=== PATIENT | female | born 1960 | race Caucasian/White ===

== ENCOUNTER 2022-04-01 09:03 | Outpatient (CLI) | payer BC, SELFPAY | END 2022-04-01 09:04 | disposition home or self-care (01) | PROVIDERS: Visit Provider Family Medicine | DX: M54.16 Radiculopathy, lumbar region (principal); M51.36 Other intervertebral disc degeneration, lumbar region | CPT/HCPCS: 62323; J0702; Q9966 ==

== ENCOUNTER 2022-06-10 10:52 | Outpatient (CLI) | payer BC, SELFPAY | END 2022-06-10 10:53 | disposition home or self-care (01) | PROVIDERS: Visit Provider Family Medicine | DX: M54.16 Radiculopathy, lumbar region (principal); M48.062 Spinal stenosis, lumbar region with neurogenic claudication | CPT/HCPCS: 62323; J0702; Q9966 ==

== ENCOUNTER 2024-02-01 11:31 | Outpatient (RCR) | payer BC, SELFPAY ==
--- NOTE | 2024-02-01 15:45 | PT.OPEX ---
PT [place] Outpatient Eval PT [facility] Outpatient Eval Start: 02/01/24 14:27 Freq: Status: Active Protocol: Document 02/01/24 15:30 MARIA DEL CARMEN (Rec: 02/01/24 15:43 [email or web address] [id number]) E-signed By Stella Broderick DPT Physical Therapy Outpatient Evaluation Insurance Information Recert Due Date 05/01/24 Insurance Name Medicare B,Blue Cross/Blue Shield Medical Diagnosis R knee OA, R knee pain R TKA 02/16/24 Treating Diagnosis R knee pain, R knee stiffness, R knee/LE weakness, limping/ antalgic gait Subjective Subjective Patient reports chronic R knee pain leading up to R TKA scheduled for 02/16/24. She reports having L TKA in 2019. Patient has equipment from prior TKA to use again after this surgery. She lives with spouse, he is able to assist as needed at home. 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 R knee pain rated 5-6/10 with activity. Patient is scheduled for OP PT in [place] post op. Date of Surgery (If applicable) 02/16/24 Current Work Status Retired Precautions Treatment Precautions/Contraindications Pacemaker, cancer, fibro, OA, long haul covid, L TKA 2018 Assessment Assessment/Impression Patient is a 63 year old female with R knee pain, R knee stiffness, R knee/LE weakness, limping/antalgic gait. She is using [facility] for amb secondary to R knee pain and balance/vestibular issues related to her long haul covid . Patient seen in PT today for pre-op session to provide education/information on upcoming TKA surgery, safety information/HO, equipment instruction including use of FWW, and instruction in TKA exercises. Handouts issued for exercises, patient to perform them leading up to surgery. Reviewed PT/OT plan during hospital stay and patient is scheduled for OP PT in [place] post op. Patient lives with her , he is able to assist as needed after surgery. Patient reports 2 stairs with grab bars to enter the home from the garage. Once inside, patient can stay on the main level. 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 Bathroom has a raised/high toilet seat. Patient reports having L TKA in 2019. Patient seen today for pre-op session only. She will be going to OP PT in [place] post op. No further PT scheduled at this clinic. Plan of Care Rehabilitation Potential Good Physical Therapy Goals 1. Patient will be educated in TKA pre/post-op safety, mobility, and exercises with HOs provided within one visit with patient scheduled for OP PT post op rehab in [place] after L TKA surgery on 02/16/24. Coordination/Communication With Referral Source Frequency/Duration 1 pre-op session Patient Will Be Discharged From Therapy Completion of LTG(s),Skills Plateau,Independent w/HEP, Independently Progressing Evaluation Billing Untimed Code Treatment Minutes 35 Complexity Low Certification Information Initial Certification Date 02/01/24 Ending Certification Date 05/01/24 Provider Signature Required Yes Provider Signature Shows Agreement With POC & Medical Necessity Physician NPI Number Write NPI# Here Physician Comment/Change : Physician Signature & Date Requested Please Sign/Date Here
== END 2024-05-31 10:51 | disposition home or self-care (01) ==
PROVIDERS: PCP Orthopaedic Surgery; Visit Provider Orthopaedic Surgery
DX: M17.11 Unilateral primary osteoarthritis, right knee (principal); Z96.651 Presence of right artificial knee joint; Z51.89 Encounter for other specified aftercare
CPT/HCPCS: 97161

== ENCOUNTER 2024-02-16 09:00 | Day surgery (SDC) | payer BC, SELFPAY ==
[2024-02-16] VITALS (21 sets, daily range): BP systolic 115–154; BP diastolic 65–96; PULSE 62–81; RESP 9–19; TEMP 35.7–36.5; O2SAT 92–100; BMI 48.9
[2024-02-16] MEDS: CELECOXIB 200 MG CAPSULE PO (09:40)
[2024-02-16] MEDS: ACETAMINOPHEN 500 MG TABLET 1000 MG PO ×3 (09:40→21:59)
[2024-02-16] MEDS: OXYCODONE (CR) 10 MG TAB.ER.12H PO (09:40)
[2024-02-16] MEDS: SODIUM CHLORIDE 0.9 % (FLUSH) 10 ML SYRINGE IVF (10:00)
[2024-02-16] MEDS: LACTATED RINGERS 1000 ML 1,000 ML 100 ML IV ×2 (10:00→11:54)
[2024-02-16] MEDS: fentaNYL 100 MCG/2 ML inj IVP (10:10)
[2024-02-16] MEDS: MIDAZOLAM HCL 1 MG/ML inj IVP (10:10)
[2024-02-16] MEDS: CEFAZOLIN 1 GM inj 3 GM IVP (10:37)
[2024-02-16] MEDS: TRANEXAMIC ACID 100 MG/ML INJ 1000 MG IV (10:38)
--- NOTE | 2024-02-16 12:08 | CRLHL7_ITS ---
For Patients: As a result of the Cures Act, medical imaging exams and procedure reports are released immediately into your electronic medical record. You may view this report before your referring provider. If you have questions, please contact your health care provider. Indication: post op TKA Technique: Two views right knee Findings/Impression: Hardware from a right total knee arthroplasty is in satisfactory position. Bone alignment is normal. No sign of acute fracture. Postop changes are within normal limits. Dictated by Ramakrishna Marie MD @ 02/17/2024 9:11:45 AM (Electronically Signed)
--- NOTE | 2024-02-16 12:13 | P.ORPRC_ITS ---
Procedure Note Date of procedure: 02/16/24 Procedure: PREOPERATIVE DIAGNOSIS: Right knee osteoarthritis POSTOPERATIVE DIAGNOSIS: Right knee osteoarthritis NAME OF OPERATION: Right total knee arthroplasty SURGEON: Virgil Hassan MD CLIPPER MACHINE: LORNA Malik ANESTHESIA: Spinal ESTIMATED BLOOD LOSS: 0 mL COMPLICATIONS: None SPECIMENS: None DRAINS: None PREOPERATIVE ANTIBIOTICS: Ancef 3 grams, antibiotic impregnated cement IMPLANTS: 1. J[employer]J Attune revision CRS #6 posterior stabilized femur, with a 14 mm x 50 mm cemented stem 2. #6 revision CRS fixed-bearing tibia, with a 14 mm x 50 mm cemented stem 3. #6 posterior stabilized, 5 mm fixed-bearing polyethylene 4. 38 patella INDICATIONS: The patient is a 63-year-old with a longstanding history of severe, unrelenting right knee pain secondary to end-stage (grade IV) right knee osteoarthritis. Despite appropriate nonoperative management, including activity modification, anti-inflammatories, ehjn-xqy-ybqelai pain medication, bracing, physical therapy, and injections they continue to have pain and disability. Operative intervention was offered. The risks, benefits and expected outcomes were discussed in detail. These included but were not limited to: Infection, bleeding, injury to blood vessel or nerve, venous thromboembolism. All questions were answered to their satisfaction. Use of an criminal legal assistant was necessary throughout the case for patient positioning and safety, soft tissue retraction, and closure. A modifier 22 should be added to this case . The patient's weight of 130 kg with a BMI of 49 and a 50 mm thick layer of adipose over the extensor mechanism made the exposure difficult. Additionally, in order to reduce the risk of aseptic loosening stemmed components were used. These factors added time and cost to complete the case. PROCEDURE: Spinal anesthesia was administered. The patient was placed supine on the operating table. The criminal legal assistant made sure the patient was positioned appropriately. The lower extremity was prepped and draped in the usual sterile fashion. The limb was exsanguinated with the Francisco bandage. The pneumatic tourniquet was inflated to 300 mmHg. A standard anterior incision was made with the knee in flexion. Subcutaneous dissection was sharply taken through fascial layer #1. Full-thickness medial and lateral flaps were elevated. The criminal legal assistant retracted the soft tissues and protected them throughout the case. A standard subvastus approach was made. The patella was subluxed. The infrapatellar fat pad was debrided. The menisci and cruciate ligaments were sharply d?brided. Marginal osteophytes were d?brided with the rongeur. The drill was used to penetrate the femoral canal. The canal was aspirated and irrigated with pulse lavage. The intramedullary femoral guide was placed for a 5-degree valgus cut, removing 10 mm off the distal femur. The saw was used to make the cut. Whitesides line and the trans epicondylar axis were marked. The femoral sizing guide was pinned onto the distal femur. Three degrees of external rotation nicely parallels the transepicondylar axis. Pins were placed for posterior referencing. The four-in-one cutting guide was pinned onto the distal femur. The anterior, posterior, and chamfer cuts were made. The criminal legal assistant protected the collateral ligaments. The revision trial was placed. The box cuts were made. The drill was used x2. The stemmed, boxed trial was placed and was an excellent fit. Attention was then turned to the proximal tibia. The extramedullary tibial guide was placed for a neutral varus/valgus cut with 5 degrees of posterior slope, removing 0 mm based off the medial tibial surface. The criminal legal assistant protected the collateral ligaments and the neurovascular bundle. The saw was used to make the cut. Trial components were placed. The knee was nicely balanced in both flexion and extension. The trial components were removed. The tray was placed in appropriate rotation, parallel to our tibial cutting pins. It was pinned by the criminal legal assistant and the drill x2 was used. The stemmed tibial trial was placed. The punch was used. The tray was removed. The punch was used again. Attention was then turned to the patella. [place] patellar thickness was 20 mm. The lobster claw resection guide was used with the 7.5 mm sanjuanita and the saw blade used as an extra sanjuanita . The saw was used to make the cut. Drill holes were made by the criminal legal assistant. The trial was placed and was an excellent fit. Cancellous surfaces were irrigated with pulse lavage and thoroughly dried by the criminal legal assistant. We cemented the tibial component, then the femoral component. We impacted the 5 mm polyethylene onto the tibial tray. The knee was brought into full extension. We then cemented the patellar component. Excessive cement was removed. The cement was allowed to harden. The knee was taken through a range of motion and was found to be nicely balanced in both flexion and extension. The patella tracks centrally. The criminal legal assistant did a three minute dilute Betadine solution soak. The criminal legal assistant irrigated the wound with 3 liters of normal saline via pulse lavage. The criminal legal assistant reapproximated the extensor mechanism with #1 Vicryl in an interrupted hujwlo-eu-rsalr fashion. The criminal legal assistant then ran the extensor mechanism with a #1 PDO Stratafix. The criminal legal assistant closed the subcutaneous tissues with a 3-0 Stratafix and the skin with a running 3-0 Stratafix in a subcuticular fashion. Glue was used to seal the skin. The criminal legal assistant placed a dry dressing. Sponge and needle counts were correct x2. The patient tolerated the procedure well. There were no apparent complications. They were carefully transferred to the hospital bed and taken to the postanesthesia care unit in satisfactory condition. PLAN: The patient will be mobilized with physical therapy. Aspirin will be used for DVT prophylaxis. They will be discharged to home once medically appropriate.
--- NOTE | 2024-02-16 12:58 | W.ANESCHARGE ---
Anesthesia Charges Start Date/Time Anesthesia Start Date: 02/16/24 Anesthesia Start Time: 10:27 Stop Date/Time Anesthesia Stop Date: 02/16/24 Anesthesia Stop Time: 12:58
--- NOTE | 2024-02-16 13:02 | P.NB_ITS ---
Nerve Block Nerve Block Time Seen by Provider: 10:15 Date Seen: 02/16/24 Type of block requested by surgeon for post-operative analgesia: adductor canal Side: right Time out performed: Yes Verification of patient name: Yes Verification of date of : Yes Site marking: site marked Name of person performing procedure: Yovani Continuous monitoring Was continuous monitoring of O2 sat, B/P, registered nurse cardiac telemetry, recorded every 15 minutes?: Yes Procedure Checklist: sterile prep, needles and gloves Ultrasound guided. Images saved: Yes Medications given in 5ml increments after negative aspiration: Ropivicaine %: 0.5 mL: 20 Needle gauge: 20 Decadron (mg): 10 Precedex (mcg): 25 Patient tolerated procedure well: Yes Additional comments: Needle noted adjacent to nerve Block Charges Block Charge (with Pro Fee): Femoral Nerve Use of Ultrasound Machine for Block: Yes- US Guidance/pain block
--- NOTE | 2024-02-16 13:02 | W.PM.NB ---
Nerve Block Nerve Block Time Seen by Provider: 10:15 Date Seen: 02/16/24 Type of block requested by surgeon for post-operative analgesia: geniculars Side: right Time out performed: Yes Verification of patient name: Yes Verification of date of : Yes Site marking: site marked Name of person performing procedure: Yovani Continuous monitoring Was continuous monitoring of O2 sat, B/P, threat monitoring analyst, recorded every 15 minutes?: Yes Procedure Checklist: sterile prep, needles and gloves Medications given in 5ml increments after negative aspiration: Ropivicaine %: 0.5 mL: 9 Needle gauge: 25 Patient tolerated procedure well: Yes Block Charges Block Charge (with Pro Fee): Genicular Nerve Block Use of Ultrasound Machine for Block: No
--- NOTE | 2024-02-16 13:03 | W.ANESCHARGE ---
Anesthesia Charges Start Date/Time Anesthesia Start Date: 02/16/24 Anesthesia Start Time: 10:27 Stop Date/Time Anesthesia Stop Date: 02/16/24 Anesthesia Stop Time: 12:58
--- NOTE | 2024-02-16 13:33 | SUR.PHASEI ---
patient met discharge criteria per anesthesia
--- NOTE | 2024-02-16 14:35 | PC.NURSE ---
End of shift report: Patient arrived from PACU at 1330. VSS. Denies pain at this time. Spinal block continues to be present. Can feel touch from knees up. Still no feeling in feet and unable to wiggle toes. Pedal pulses present, warm, pink toes, capillary refill less than 3 seconds. Dressing to right knee is clean, dry and intact. Patient was initially dizzy when elevated after surgery, patient's head was let back down and dizziness resolved. Patient is now tolerating to be upright. Patient denies nausea. Is tolerating clear liquids and anshu crackers. PIV patent and has LR running at 75ml/hr. Lung sounds clear. Incentive spirometer was taught and patient using without difficulty. No void yet. Bowel sounds hypoactive. present at bedside. Plans to DC home with at discharge. This is the 2nd joint for patient.
--- NOTE | 2024-02-16 15:01 | P.IMCN_ITS ---
Date of Consult Patient: Other Consult date: 02/16/24 Requesting Physician: Orthopedics Primary Care Provider: Not a Local Provider Consult Narrative Narrative: Cece Rowe is a 63 year old female admitted to the hospital for right total knee arthroplasty. Procedures performed by Dr. Hassan without complications. She seen postoperatively for management of medical problems at the request of Dr. Hassan. Patient reports feeling well after surgery. Her spinal anesthesia is still in affect causing loss of sensation and motion in her legs when I see her. She is otherwise feeling well. She reports when she came to the hospital that she is well. She has had no recent illness or injury. She had a preop physical at her primary care provider in [place]. No significant medical problems identified at that time except borderline low blood pressure. Blood pressure at that time was 90/62 and so her triamterene hydrochlorothiazide dose was reduced from 1 full 75/50 tablet daily to 1/2 tablet daily. She takes meloxicam daily and semaglutide on Sundays but held those 1 week before surgery. Review of Systems Narrative: No recent illness or injury. No active medical problems. [facility] Medical History (Updated 02/16/24 @ 15:10 by Michael Caal MD) Atrioventricular block, second degree ?I44.1 - Atrioventricular block, second degree (ICD-10) Temporomandibular joint disorder ?M26.609 - Unspecified temporomandibular joint disorder, unspecified side (ICD-10) Chronic sinusitis ?J32.9 - Chronic sinusitis, unspecified (ICD-10) Migraine ?G43.909 - Migraine, unspecified, not intractable, without status migrainosus (ICD-10) Spinal stenosis, lumbar region, without neurogenic claudication ?M48.061 - Spinal stenosis, lumbar region without neurogenic claudication (ICD-10) Other intervertebral disc displacement, lumbar region ?M51.26 - Other intervertebral disc displacement, lumbar region (ICD-10) HTN (hypertension) ?I10 - Essential (primary) hypertension (ICD-10) Balance problem ?R26.89 - Other abnormalities of gait and mobility (ICD-10) Back problem ?M53.9 - Dorsopathy, unspecified (ICD-10) Pacemaker ?Z95.0 - Presence of cardiac pacemaker (ICD-10) Fibromyalgia ?M79.7 - Fibromyalgia (ICD-10) Hernia ?K46.9 - Unspecified abdominal hernia without obstruction or gangrene (ICD- 10) Uterine cancer ?C55 - Malignant neoplasm of uterus, part unspecified (ICD-10) Problem of menstruation ?N92.6 - Irregular menstruation, unspecified (ICD-10) Eating disorder ?F50.9 - Eating disorder, unspecified (ICD-10) Arthritis ?M19.90 - Unspecified osteoarthritis, unspecified site (ICD-10) Osteoporosis ?M81.0 - Age-related osteoporosis without current pathological fracture (ICD- 10) Surgical History (Updated 02/16/24 @ 15:05 by Michael Caal MD) History of arthroplasty of right knee ?Z96.651 - Presence of right artificial knee joint (ICD-10) H/O: hysterectomy ?Z90.710 - Acquired absence of both cervix and uterus (ICD-10) Hx of hernia repair ?Z98.890 - Other specified postprocedural states (ICD-10) ?Z87.19 - Personal history of other diseases of the digestive system (ICD-10) History of open reduction and internal fixation (ORIF) procedure (11/29/04) ?Z98.890 - Other specified postprocedural states (ICD-10) History of arthroscopy of right knee (03/22/10) ?Z98.890 - Other specified postprocedural states (ICD-10) Status post left knee replacement (11/02/18) ?Z96.652 - Presence of left artificial knee joint (ICD-10) History of arthroscopy of left knee (11/22/09) ?Z98.890 - Other specified postprocedural states (ICD-10) History of total abdominal hysterectomy and bilateral salpingo-oophorectomy (02/10/11) ?Z90.710 - Acquired absence of both cervix and uterus (ICD-10) ?Z90.722 - Acquired absence of ovaries, bilateral (ICD-10) ?Z90.79 - Acquired absence of other genital organ(s) (ICD-10) History of tonsillectomy (11/25/10) ?Z90.89 - Acquired absence of other organs (ICD-10) Status post breast reduction (~2000) ?Z98.890 - Other specified postprocedural states (ICD-10) H/O arthroscopy of shoulder ?Z98.890 - Other specified postprocedural states (ICD-10) Hx of appendectomy (~01/2011) ?Z90.49 - Acquired absence of other specified parts of digestive tract (ICD- 10) Gastric bypass status for obesity ?Z98.84 - Bariatric surgery status (ICD-10) Family History Other High blood pressure Stroke Social History (Updated 02/16/24 @ 15:06 by Michael Caal MD) Narrative: She lives in [place] with her . 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 They live in a rambling [place] home with 2 steps to get into the house but she can live on 1 level otherwise. She does not smoke. She drinks alcohol a couple times a month. Code status is full What is your current living situation?: I presently have a place to live Problems where you live: no known problems In the past 12 months, utilities in danger of being shut off: no In past 12 months, lack of transportation kept you from medical appts, meetings, work, or getting things needed for daily living: no In the past 12 mos, have been you worried that your food would run out before you had money to buy more?: never true In the past 12 mos, the food you bought just didn't last and you didn't have money to buy more?: never true Smoking Status: Never smoker How often do you have a drink containing alcohol: monthly or less How many standard drinks containing alcohol do you have on a typical day: 1 or 2 How often do you have six or more drinks on one occasion: Never AUDIT-C Alcohol total score: 1 Non-prescribed substance use: denies use Caffeine: Yes (2c/day) How often does anyone, including family, friends and others, physically hurt you : never How often does anyone, including family, friends and others, insult or talk down to you: never How often does anyone, including family, friends and others, threaten you with harm: never How often does anyone, including family, friends and others, scream or curse at you: never service: No Meds Home Medications and Allergies Home Medications ?Medication ?Instructions ?Recorded ?Confirmed ?Type acetaminophen 500 mg tablet mg PO PRN 01/21/22 12/07/23 History cetirizine 10 mg tablet 10 mg PO DAILY 01/21/22 02/16/24 History epinephrine 0.3 mg/0.3 mL 0.3 ml IM .As Needed as needed PRN 01/21/22 02/16/24 History injection, auto-injector glucosamine 750 hw-yhwcfpqhgeo-nqm tab PO 01/21/22 12/07/23 History no1 625 mg-C 30 mg-rebeca 1 mg tablet multivitamin 1 tab PO QAM 01/21/22 02/16/24 History omega 5-yqm-wkz-fish oil 300 1 cap PO BID 01/21/22 02/16/24 History mg-1,000 mg capsule (Fish Oil) tramadol 50 mg tablet 50 mg PO Q6H PRN 01/21/22 02/16/24 History metoprolol succinate 25 mg 25 mg PO BID 01/05/23 02/16/24 History tablet,extended release 24 hr triamterene 75 0.5 tab PO DAILY 01/05/23 02/16/24 History mg-hydrochlorothiazide 50 mg tablet pramipexole 0.125 mg tablet 0.125 mg PO TID 04/22/23 02/16/24 History pregabalin 50 mg capsule 100 mg PO BID 04/22/23 02/16/24 History pantoprazole 40 mg tablet,delayed 40 mg PO DAILY 12/07/23 02/16/24 History release semaglutide (weight loss) 1 mg/0.5 mg subcut 12/07/23 12/07/23 History mL subcutaneous pen injector (Payal) L.acidophilus-L.bulgar-B.bifid-S.thermoph 1 tab PO BID 02/15/24 02/16/24 History 1 billion cell-250 mg tablet (Tonya-Bid) bisacodyl 5 mg tablet 10 mg PO DAILY 02/15/24 02/16/24 History cholecalciferol (vitamin D3) 125 125 mcg PO BID 02/15/24 02/16/24 History mcg (5,000 unit) capsule docusate sodium 100 mg capsule 50 mg PO BID 02/15/24 02/16/24 History fluticasone propionate 50 2 spray intranasal DAILY 02/15/24 02/15/24 History mcg/actuation nasal spray,suspension (Flonase Allergy Relief) magnesium gluconate 27 mg 27 mg PO DAILY 02/15/24 02/16/24 History magnesium (500 mg) tablet meloxicam 15 mg tablet 15 mg PO DAILY 02/15/24 02/15/24 History zinc 25 mg tablet 25 mg PO DAILY 02/16/24 02/16/24 History Allergies Allergy/AdvReac Type Severity Reaction Status Date / Time venom-wasp Allergy Severe Anaphylaxis Verified 12/07/23 13:46 amoxicillin Allergy Intermediate GI upset Verified 12/07/23 13:47 adhesive Allergy Rash Verified 12/07/23 13:46 clavulanic acid AdvReac Gastrointestinal Verified 12/07/23 13:46 [From Augmentin] Upset Exam Narrative: Exam Narrative: She is alert and appears in no distress. Mood and affect are bright. Oropharynx is normal. Neck is supple without mass or adenopathy. Respirations are clear to auscultation. Breathing is unlabored. Cardiovascular: S1, S2, regular rate and rhythm. No murmur gallop or rub. Abdomen: Bowel sounds active. Abdomen is soft without tenderness or mass. Extremities with intact pulses. She has minimal sensation to soft touch on her left leg none on her right. She can move her feet or ankles. Trace edema bilaterally. Right Knee with no obvious bruising or redness. Const: Vital Signs, click to edit/add: Vital Signs - 24 hr 02/16/24 09:34 02/16/24 10:11 02/16/24 12:54 Temperature 97.5 F L 97.1 F L Pulse Rate 75 76 63 Respiratory Rate 16 16 9 L Blood Pressure 126/77 130/65 123/73 Pulse Oximetry 98 100 95 Oxygen Delivery Me thod Room Air Nasal Cannula Room Air Oxygen Flow Rate 2 02/16/24 13:00 02/16/24 13:05 02/16/24 13:10 Temperature 97.1 F L 97.1 F L 97.1 F L Pulse Rate 66 63 63 Respiratory Rate 19 12 14 Blood Pressure 130/80 133/86 138/83 Pulse Oximetry 97 96 94 Oxygen Delivery Me thod Room Air Room Air Room Air Oxygen Flow Rate 02/16/24 13:15 02/16/24 13:20 02/16/24 13:28 Temperature 97.1 F L 97.6 F 96.2 F L Pulse Rate 64 63 68 Respiratory Rate 18 12 16 Blood Pressure 141/84 H 140/85 H 117/78 Pulse Oximetry 92 98 94 Oxygen Delivery Me thod Room Air Room Air Room Air Oxygen Flow Rate 02/16/24 13:30 02/16/24 13:45 02/16/24 14:00 Temperature 96.2 F L Pulse Rate 68 62 68 Respiratory Rate 16 12 16 Blood Pressure 128/75 125/77 136/81 Pulse Oximetry 92 92 97 Oxygen Delivery Me thod Room Air Room Air Room Air Oxygen Flow Rate 02/16/24 14:15 02/16/24 14:30 Temperature Pulse Rate 69 69 Respiratory Rate 16 16 Blood Pressure 141/82 H 115/68 Pulse Oximetry 97 96 Oxygen Delivery Me thod Room Air Room Air Oxygen Flow Rate Documenting provider has reviewed patient's vital signs: yes Assessment and Plan Assessment and plan (1) History of arthroplasty of right knee: Problem comment: 02/16/2024, Dr. Hassan, no complications. Status: Acute (2) Morbid obesity with BMI of 45.0-49.9, adult: Problem comment: At risk for sleep apnea and complications of knee arthroplasty Status: Acute (3) HTN (hypertension): Problem comment: Monitor blood pressure on reduced dose hydrochlorothiazide/triamterene due to low blood pressure. For now will hold this medicine. Status: Acute (4) Edema of lower extremity: Problem comment: Chronic lower extremity edema managed with hydrochlorothiazide triamterene on reduced dose now. Status: Acute Plan Routine postoperative management of pain. Routine postoperative therapy. Monitor for complications of surgery. Anticipate discharge to home with tomorrow.
[2024-02-16] MEDS: OXYCODONE 5 MG TABLET PO ×3 (16:12→22:20)
[2024-02-16] MEDS: CEFAZOLIN 3 GM in 0.9 % SODIUM CHLORIDE Mini-bag 100 ML IVPB (19:32)
--- NOTE | 2024-02-16 19:33 | PC.NURSE ---
Nursing Care Hours: [id number] Pt this shift calm and cooperative, alert and oriented. Pain rated 2/10, treated per eMAR. Ice on, bandage CDI. Up to BSC with Ax1 with walker and gait belt. pt felt like knee could give out so pivot transfer to recliner. CMS intact, VSS.
[2024-02-16] MEDS: METOPROLOL SUCCINATE (XL) 25 MG TAB PO (21:07)
[2024-02-16] MEDS: SENNOSIDES 1 TAB TABLET 2 TAB PO (21:07)
[2024-02-16] MEDS: ASPIRIN 81 MG TABLET EC PO (21:07)
[2024-02-16] MEDS: PREGABALIN 50 MG CAPSULE 100 MG PO (21:07)
[2024-02-16] MEDS: PRAMIPEXOLE 0.125 MG TABLET PO (21:08)
[2024-02-17 03:00] VITALS: BP 126/79; PULSE 90; RESP 18; TEMP 36.5; O2SAT 96
[2024-02-17] MEDS: CEFAZOLIN 3 GM in 0.9 % SODIUM CHLORIDE Mini-bag 100 ML IVPB (03:16)
[2024-02-17] MEDS: ACETAMINOPHEN 500 MG TABLET 1000 MG PO (03:47)
[2024-02-17] MEDS: OXYCODONE 5 MG TABLET PO ×2 (05:43→08:07)
--- NOTE | 2024-02-17 05:58 | PC.NURSE ---
End of shift [id number]: Pt alert and oriented,?calm, and cooperative. Pain rated 0-5/10, radio script writer utilized scheduled medication, PRN medication, Ice, and repositioning. Active ice on R knee, bandage CDI. Up to BSC and chair with Ax1, walker, and gait belt. CMS intact, VSS. Pt states?LLE feels shaky during ambulation and the RLE feels like the knee is going to ?buckle? and give out during ambulation. Publication Distributor encouraged slow position changes with close observation. Pt tolerating diet/fluids well. IV SL. Pt appears resting comfortably with call light in reach. ? ?
[2024-02-17] MEDS: OMEPRAZOLE 20 MG CAPSULE DR 40 MG PO (06:36)
[2024-02-17 07:00] VITALS: BP 143/90; PULSE 79; RESP 18; TEMP 36.4; O2SAT 100
[2024-02-17 07:09] LABS: Basophils Percent Auto 0.1 % (0.0-3.0); Hematocrit 36.4 % (33.0-51.0); Hemoglobin* 12.1 gm/dL (12.0-16.0); Immature Granulocytes Pct Auto 0.2 %; Lymphocytes Percent Auto 8.1 % (20-44); Mean Corpuscular HGB Conc 33 gm/dL (32-36); Mean Corpuscular Hemoglobin 30 pg (26-34); Mean Corpuscular Volume 89 fL (80-100); Monocytes Percent Auto 6.6 % (0.0-11.0); Platelet Count* 288 K/uL (140-440); RDW Coefficient of Variation % 13.7 % (11.5-15.5); Red Blood Count 4.08 m/uL (4.00-5.20); White Blood Count* 13.15 K/uL (4.50-11.00)
[2024-02-17 07:15] LABS: Slide Review Reflex No
[2024-02-17 07:20] LABS: INR 0.98 (0.91-1.10); Prothrombin Time 13.6 Seconds
[2024-02-17 07:22] LABS: Potassium* 4.1 mmol/L (3.6-5.1); Sodium* 135 mmol/L (135-149)
[2024-02-17 07:25] LABS: Blood Urea Nitrogen* 31 mg/dL (7-30); Creatinine* 1.1 mg/dL (0.5-1.5); Estimated Glomerular Filt Rate 56 ml/min
--- NOTE | 2024-02-17 07:43 | PM.ORPN ---
Subjective Subjective Time Seen by Provider: 07:44 Date Seen: 02/17/24 Principal diagnosis: Post right knee replacement Interval history: Cece is comfortable this morning. The intermittent pneumatic compression are uncomfortable to her, she has peripheral neuropathy and hypersensitivity in her feet with them on. She would like them discontinued. She had buckling yesterday which of the right knee. She has not been up this morning yet. Ortho Exam Narrative Exam Narrative: Alert and oriented x3. Patient is in no acute distress. Converses without labored breathing. Hearing is grossly intact. Ambulates with a walker. Patient is examined supine. The dressing is intact. Ecchymosis is present. Mild soft tissue edema. Peripheral neuropathy, otherwise CMS is intact, she is able to straight leg raise, she is able to flex and extend her ankle and toes. Skin is warm. Capillary refill less than 2 seconds. Calves are soft and nontender. Const Vital Signs, click to edit/add: Vital Signs - 24 hr 02/16/24 09:34 02/16/24 10:11 02/16/24 12:54 Temperature 97.5 F L 97.1 F L Pulse Rate 75 76 63 Pulse Rate [Pulse Oximeter] Respiratory Rate 16 16 9 L Blood Pressure 126/77 130/65 123/73 Blood Pressure [Right Arm] Pulse Oximetry 98 100 95 Oxygen Delivery Method Room Air Nasal Cannula Room Air Oxygen Flow Rate 2 02/16/24 13:00 02/16/24 13:05 02/16/24 13:10 Temperature 97.1 F L 97.1 F L 97.1 F L Pulse Rate 66 63 63 Pulse Rate [Pulse Oximeter] Respiratory Rate 19 12 14 Blood Pressure 130/80 133/86 138/83 Blood Pressure [Right Arm] Pulse Oximetry 97 96 94 Oxygen Delivery Method Room Air Room Air Room Air Oxygen Flow Rate 02/16/24 13:15 02/16/24 13:20 02/16/24 13:28 Temperature 97.1 F L 97.6 F 96.2 F L Pulse Rate 64 63 68 Pulse Rate [Pulse Oximeter] Respiratory Rate 18 12 16 Blood Pressure 141/84 H 140/85 H 117/78 Blood Pressure [Right Arm] Pulse Oximetry 92 98 94 Oxygen Delivery Method Room Air Room Air Room Air Oxygen Flow Rate 02/16/24 13:30 02/16/24 13:45 02/16/24 14:00 Temperature 96.2 F L Pulse Rate 68 62 68 Pulse Rate [Pulse Oximeter] Respiratory Rate 16 12 16 Blood Pressure 128/75 125/77 136/81 Blood Pressure [Right Arm] Pulse Oximetry 92 92 97 Oxygen Delivery Method Room Air Room Air Room Air Oxygen Flow Rate 02/16/24 14:15 02/16/24 14:30 02/16/24 15:00 Temperature Pulse Rate 69 69 69 Pulse Rate [Pulse Oximeter] Respiratory Rate 16 16 16 Blood Pressure 141/82 H 115/68 117/73 Blood Pressure [Right Arm] Pulse Oximetry 97 96 95 Oxygen Delivery Method Room Air Room Air Room Air Oxygen Flow Rate 02/16/24 15:00 02/16/24 15:30 02/16/24 16:00 Temperature 96.5 F L Pulse Rate 69 70 Pulse Rate [Pulse Oximeter] Respiratory Rate 18 16 Blood Pressure 136/96 H 132/77 Blood Pressure [Right Arm] Pulse Oximetry 99 99 98 Oxygen Delivery Method Room Air Room Air Room Air Oxygen Flow Rate 02/16/24 17:00 02/16/24 18:00 02/16/24 19:00 Temperature 97.4 F L Pulse Rate 63 75 81 Pulse Rate [Pulse Oximeter] Respiratory Rate 18 Blood Pressure 131/88 154/74 H 140/73 H Blood Pressure [Right Arm] Pulse Oximetry 98 98 94 Oxygen Delivery Method Room Air Room Air Room Air Oxygen Flow Rate 02/16/24 23:00 02/16/24 23:00 02/17/24 03:00 Temperature 97.7 F 97.7 F Pulse Rate Pulse Rate [Pulse Oximeter] 77 90 Respiratory Rate 16 16 18 Blood Pressure Blood Pressure [Right Arm] 127/84 126/79 Pulse Oximetry 95 95 96 Oxygen Delivery Method Room Air Room Air Room Air Oxygen Flow Rate Assessment and Plan Assessment and plan (1) History of arthroplasty of right knee: Problem details: 02/16/2024, Dr. Hassan, no complications. Status: Acute Assessment and Plan: Plan for discharge is today to home if they meet discharge criteria. Cece has good quad control this morning. She has not been out of bed. I would anticipate the buckling to improve shortly if it has not already. Physical therapy and occupational therapy will work with her today. DVT prophylaxis includes aspirin 81 mg twice daily x1 month, Compression stockings/wraps as needed for swelling. Frequent ambulation, every hour throughout the day. Remove dressing in 1 week. Observe wound and phone Orthopedics with any questions or concerns Return to clinic in 1 week- 10 days for a wound check Return to clinic in 6 weeks with surgeon Minimize narcotic use. Wean off and discontinue soon as possible. She has Tylenol at home. Activities as tolerated. No strenuous activity. Outpatient physical therapy as scheduled. Ice and elevate the operative extremity. No restriction on ice.
[2024-02-17] MEDS: SENNOSIDES 1 TAB TABLET 2 TAB PO (08:07)
[2024-02-17] MEDS: PRAMIPEXOLE 0.125 MG TABLET PO (08:08)
[2024-02-17] MEDS: CETIRIZINE HCL 10 MG TABLET PO (08:08)
[2024-02-17] MEDS: METOPROLOL SUCCINATE (XL) 25 MG TAB PO (08:08)
[2024-02-17] MEDS: MULTIVITAMIN/MINERALS 1 TABLET 1 TAB PO (08:08)
[2024-02-17] MEDS: ASPIRIN 81 MG TABLET EC PO (08:08)
[2024-02-17] MEDS: PREGABALIN 50 MG CAPSULE 100 MG PO (08:13)
--- NOTE | 2024-02-17 10:29 | PC.SOCIAL ---
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 Pt stated that she feels good about discharging home today and has all of the needed supports in place. Pt has also had her other knee joint replaced in the past, so is familiar with the recovery process for her knee replacement. Pt lives in [place] and plans to do outpatient physical therapy in [place]. Social work to follow-up as needed.
--- NOTE | 2024-02-17 10:57 | PC.NURSE ---
Discharge: patient discharged today at 1050 to home accompanied by spouse. dressing to Right knee, C/D/I. Patients VSS, A/o x4. IV removed intact. Premedi prior to therapy and patient rated pain 2/10. Patient ambulating to BR and chair SBA with walker/GB. Tolerated activity well. Patient on Reg. diet, RA. tolerating up to chair for meals. Patients belonging list signed, discharge instructions given and patient verbalized understanding of instructions. Discharge instructions signed.
== END 2024-02-17 10:50 | disposition home or self-care (01) ==
LOC: OR 09:02 → MEDSURG 09:05
PROVIDERS: Visit Provider Orthopaedic Surgery
PROC: (CPT 27447; principal; 2024-02-16 10:30)
DX: M17.11 Unilateral primary osteoarthritis, right knee (principal); G89.18 Other acute postprocedural pain; Z68.42 Body mass index [BMI] 45.0-49.9, adult; E66.01 Morbid (severe) obesity due to excess calories; R60.0 Localized edema; G62.9 Polyneuropathy, unspecified; I10 Essential (primary) hypertension; M79.7 Fibromyalgia; M48.061 Spinal stenosis, lumbar region without neurogenic claudication; M81.0 Age-related osteoporosis without current pathological fracture; I44.1 Atrioventricular block, second degree; Z95.0 Presence of cardiac pacemaker
CPT/HCPCS: 27447; 01402; 36415; 64447; 64454; 73560; 76942; 82565; 84132; 84295; 84520; 85025; 85610; 97110; 97116; 97162; 97165; 97535; A9153; A9270; C1776; J0690; J1100; J2250; J2405; J2704; J2795; J3010; J3490; J7120